=== PATIENT | male | born 1965 | race Caucasian/White ===

== ENCOUNTER 2020-10-29 12:53 | Inpatient (IN) | payer OTHER ==
[~2020-10-29] VITALS: Ht 182.9 cm; Wt 99.0 kg
[~2020-10-29 12:53] MED LIST: HYDACE5 PO; NAPR220 PO; NAPR550 PO; PENVK500 PO; RXNAPNA550 PO
[2020-10-29] MEDS ORDERED: LISI5 PO (13:42)
[2020-10-29 14:14] LABS: Hemoglobin 16.1 g/dL (13.5-17.5); Mean Corpuscular HGB 31.6 pg (26.0-34.0); Mean Corpuscular HGB Conc 33.5 g/dL (31.5-36.5); Mean Corpuscular Volume 94 fL (80-100); Mean Platelet Volume 9.8 fL (9.1-12.4); Platelet Count 214 K/mm3 (150-400); RDW Coefficient Variation 13.2 % (11.7-14.2); RDW Standard Deviation 45.5 fL (35.1-46.3); White Blood Cell Count 5.79 K/mm3 (4.00-11.30)
[2020-10-29 14:40] LABS: BAND PERCENT MAN 2 % (0-8); BASOPHILS PERCENT MAN 0 % (0-2); EOSINOPHILS PERCENT MAN 0 % (0-6); LYMPHOCYTES ABSOLUTE MAN 1.04 K/mm3 (0.84-5.20); LYMPHOCYTES PERCENT MAN 18 % (21-46); MONOCYTES ABSOLUTE MAN 0.05 K/mm3 (0.16-1.47); MONOCYTES PERCENT MAN 1 % (4-13); NEUTROPHILS ABSOLUTE MAN 4.68 K/mm3 (1.96-9.15); SEG NEUTROPHILS PERCENT MAN 79 % (41-73); TOTAL CELLS COUNTED 100
[2020-10-29 14:46] LABS: Alanine Aminotransfer (ALT/SGP 48 U/L (12-78); Albumin, Blood 3.4 g/dL (3.4-5.0); Albumin/Globulin Ratio 0.8 (0.8-1.8); Alk Phos 91 U/L (50-136); Anion Gap 7 mmol/L (6-16); Aspartate Aminotrans (AST/SGOT 72 U/L (12-37); Bilirubin, Total 0.5 mg/dL (0.1-1.0); Blood Urea Nitrogen 16 mg/dL (8-24); CO2, Blood 27 mmol/L (21-32); Calcium, Blood 8.5 mg/dL (8.5-10.1); Chloride, Blood 102 mmol/L (98-108); Creatinine, Blood 1.14 mg/dL (0.60-1.20); Globulin, Blood 4.2 g/dL (2.2-4.0); Glomerular Filtration Rate >60 (60-); Glucose, Blood 103 mg/dL (70-99); Potassium, Blood 3.6 mmol/L (3.5-5.5); Sodium, Blood 136 mmol/L (136-145); Total Protein, Blood 7.6 g/dL (6.4-8.2); Troponin I <0.015 ng/mL (0.000-0.040)
--- NOTE | 2020-10-29 17:53 | NUR ---
SHIFT SUMMARY PATIENT TRANSFERED FROM ER AT 1700. PATIENT SETTLED INTO ROOM. PATIENT IS ON 7L HIGH FLOW. PATIENT IS A SBA TO BATHROOM TOLERATED. PATIENT IS PLEASANT AND COOPERATIVE WITH CARE. PATIENT REPORTS HAVING AN APPETITE AND ORDERED A DINNER TRAY. PATIENT DENIES NAUSEA AND PAIN. PATIENT REPORTS BEING SOB AT REST.
--- NOTE | 2020-10-30 04:21 | NUR ---
BOARD CERTIFIED BEHAVIORAL ANALYST SUMMARY PT A/O X4, SLEPT WELL TONIGHT. FLAT AFFECT. SBA TO INDEPENDENT IN ROOM. CONTINUES TO BE ON 7L VIA HIGH FLOW SATTING IN THE LOW 90'S. DIM LUNG SOUNDS THROUGHOUT. TELE RUNNING SR AR 60 PER DOUGH MACHINE OPERATOR. CALL LIGHT WITHIN REACH, WILL CONTINUE TO MONITOR.
[2020-10-30 06:40] LABS: BASOPHILS ABSOLUTE AUTO 0.03 K/mm3 (0.00-0.23); BASOPHILS PERCENT AUTO 1 % (0-2); EOSINOPHILS PERCENT AUTO 0 % (0-6); Hematocrit 46.9 % (37.0-53.0); Hemoglobin 15.8 g/dL (13.5-17.5); IMMATURE GRAN ABSOLUTE AUTO 0.07 K/mm3 (0.00-0.10); IMMATURE GRAN PERCENT AUTO 2 % (0-1); LYMPHOCYTES ABSOLUTE AUTO 0.99 K/mm3 (0.84-5.20); LYMPHOCYTES PERCENT AUTO 25 % (21-46); MONOCYTES ABSOLUTE AUTO 0.29 K/mm3 (0.16-1.47); MONOCYTES PERCENT AUTO 7 % (4-13); Mean Corpuscular HGB 31.3 pg (26.0-34.0); Mean Corpuscular HGB Conc 33.7 g/dL (31.5-36.5); Mean Corpuscular Volume 93 fL (80-100); Mean Platelet Volume 10.2 fL (9.1-12.4); NEUTROPHILS ABSOLUTE AUTO 2.61 K/mm3 (1.96-9.15); NEUTROPHILS PERCENT AUTO 65 % (41-73); Platelet Count 241 K/mm3 (150-400); RDW Coefficient Variation 13.3 % (11.7-14.2); RDW Standard Deviation 45.7 fL (35.1-46.3); Red Blood Cell Count 5.05 M/mm3 (4.30-5.90); White Blood Cell Count 3.99 K/mm3 (4.00-11.30)
[2020-10-30 07:07] LABS: Alanine Aminotransfer (ALT/SGP 53 U/L (12-78); Albumin/Globulin Ratio 0.7 (0.8-1.8); Alk Phos 89 U/L (50-136); Anion Gap 7 mmol/L (6-16); Aspartate Aminotrans (AST/SGOT 72 U/L (12-37); Bilirubin, Total 0.5 mg/dL (0.1-1.0); Blood Urea Nitrogen 24 mg/dL (8-24); Bun/Creatinine Ratio 26.5 (12.0-20.0); CO2, Blood 26 mmol/L (21-32); Calcium, Blood 8.6 mg/dL (8.5-10.1); Chloride, Blood 105 mmol/L (98-108); Globulin, Blood 4.2 g/dL (2.2-4.0); Glomerular Filtration Rate >60 (60-); Glucose, Blood 130 mg/dL (70-99); Potassium, Blood 3.8 mmol/L (3.5-5.5); Sodium, Blood 138 mmol/L (136-145); Total Protein, Blood 7.2 g/dL (6.4-8.2)
[2020-10-30 23:53] LABS: Adenovirus F 40/41 Not Detected (NOT DETECT); Astrovirus Not Detected (NOT DETECT); Campylobacter Sp Not Detected (NOT DETECT); Cryptosporidium Not Detected (NOT DETECT); Cyclospora Cayetanensis Not Detected (NOT DETECT); E. Coli O157 Not Detected (NOT DETECT); Entamoeba Histolytica Not Detected (NOT DETECT); Enteroaggregative E. coli-EAEC Not Detected (NOT DETECT); Enteropathogenic E. coli-EPEC Not Detected (NOT DETECT); Enterotoxigenic E. coli-ETEC Not Detected (NOT DETECT); Giardia Lamblia Not Detected (NOT DETECT); Norovirus GI/GII Not Detected (NOT DETECT); Plesiomonas Shigelloides Not Detected (NOT DETECT); Rotavirus A Not Detected (NOT DETECT); Salmonella Sp Not Detected (NOT DETECT); Sapovirus Not Detected (NOT DETECT); Shiga Toxin-prod E. coli-STEC Not Detected (NOT DETECT); Shigella/Enteroin E. coli-EIEC Not Detected (NOT DETECT); Vibrio Cholerae Not Detected (NOT DETECT); Vibrio Sp Not Detected (NOT DETECT); Yersinia Enterocolitica Not Detected (NOT DETECT)
[2020-10-31 06:10] LABS: Base Excess Venous 1.5 mmol/L; Bicarbonate Venous 26.3 mmol/L (24.0-30.0); PCO2 Venous 32.3 mmHg (38-42); PO2 Venous 75.1 mmHg (38-42); pH Blood Venous 7.49 (7.34-7.37)
[2020-10-31 06:14] LABS: Hematocrit 45.5 % (37.0-53.0); Hemoglobin 15.2 g/dL (13.5-17.5); Mean Corpuscular HGB 30.9 pg (26.0-34.0); Mean Corpuscular HGB Conc 33.4 g/dL (31.5-36.5); Mean Corpuscular Volume 93 fL (80-100); Platelet Count 269 K/mm3 (150-400); RDW Coefficient Variation 13.1 % (11.7-14.2); RDW Standard Deviation 45.3 fL (35.1-46.3); Red Blood Cell Count 4.92 M/mm3 (4.30-5.90)
[2020-10-31 06:44] LABS: Alanine Aminotransfer (ALT/SGP 52 U/L (12-78); Albumin, Blood 2.8 g/dL (3.4-5.0); Albumin/Globulin Ratio 0.7 (0.8-1.8); Alk Phos 79 U/L (50-136); Anion Gap 7 mmol/L (6-16); Aspartate Aminotrans (AST/SGOT 54 U/L (12-37); Bilirubin, Total 0.4 mg/dL (0.1-1.0); Blood Urea Nitrogen 24 mg/dL (8-24); Bun/Creatinine Ratio 31.3 (12.0-20.0); CO2, Blood 25 mmol/L (21-32); Calcium, Blood 8.1 mg/dL (8.5-10.1); Chloride, Blood 109 mmol/L (98-108); Creatinine, Blood 0.77 mg/dL (0.60-1.20); Globulin, Blood 3.8 g/dL (2.2-4.0); Glomerular Filtration Rate >60 (60-); Glucose, Blood 116 mg/dL (70-99); Potassium, Blood 3.8 mmol/L (3.5-5.5); Sodium, Blood 141 mmol/L (136-145); Total Protein, Blood 6.6 g/dL (6.4-8.2)
[2020-10-31 09:09] LABS: BASOPHILS PERCENT MAN 0 % (0-2); EOSINOPHILS PERCENT MAN 0 % (0-6); LYMPHOCYTES ABSOLUTE MAN 0.73 K/mm3 (0.84-5.20); LYMPHOCYTES PERCENT MAN 12 % (21-46); MONOCYTES ABSOLUTE MAN 0.42 K/mm3 (0.16-1.47); MONOCYTES PERCENT MAN 7 % (4-13); NEUTROPHILS ABSOLUTE MAN 4.94 K/mm3 (1.96-9.15); SEG NEUTROPHILS PERCENT MAN 81 % (41-73); TOTAL CELLS COUNTED 100
--- NOTE | 2020-10-31 15:13 | NUR ---
SISTER TYSHAWN UPDATED VIA TELEPHONE. REQUESTS TO BE ADDED POINT OF CONTACT IN CHART, PT AGREEABLE. ADMITTING NOTIFIED. [phone]
--- NOTE | 2020-10-31 15:32 | NUR ---
NON-COMPLIANT WITH OXYGEN AT TIMES. THIS MORNING REQUIRING 15L NRB MASK. PATIENT STATES HE DOESN'T WANT TO WEAR IT, AT THAT TIME. SATURATIONS ~82% ON 11L OXYMIZER. PATIENT THEN EDUCATED AND AGREEABLE TO WEAR NRB MASK. SATURATIONS IMPROVED TO 89%. NO C/O DYSPNEA PATIENT FOUND TO HAVE NO O2 ON IN THE AFTERNOON. THIS RN EDUCATED PATIENT ON NECESSITY TO WEAR O2, AND DANGERS OF HYPOXIA. PT AGREEABLE TO WEAR O2 IN MOUTH OR NOSE AT ALL TIMES, AT THAT TIME. CONTINUES ON 13L OXYMIZER AT THIS TIME. SATS 90% AT ~1540.
--- NOTE | 2020-11-01 09:49 | NUR ---
SATURATIONS 75% ON ROOM AIR. BLUEISH TINGED LIPS. PATIENT HAS TAKEN O2 OFF. ALERT AND ORIENTED PATIENT, WAS ON 13L OXYMIZER. NOW ON BRB AT 15L, SATURATIONS 90%. EDUCATED.
--- NOTE | 2020-11-01 11:49 | NUR ---
SISTER DANIELLE [phone]. LIVES IN [place].
--- NOTE | 2020-11-02 03:44 | NUR ---
54 year old Male with covid 19 continues in special droplet contact isolation & he continues to be unable to maintain adequate oxygenation on nonrebreather or oximizer or both combined. He was changed to airvo high flow heated oxygen and sat currently 94% at rest. He has Pokelaboxx to alert staff to hypoxia & is alarms intermittanly. He does prone for hours which does not appear to improve hypoxia quickly.
--- NOTE | 2020-11-02 16:12 | NUR ---
PT IS A/OX3, PLEASANT AND COOPERATIVE. THE PT IS ON AIRVO PLUS NON REBREATHER OVER THAT. THE PT IS MAINTAING O2 SATS > 905 EXCEPT WITH ACTIVITY HE DESATS. PT TAKES THE NON REBREATHER OFF AT TIMES FOR A BREAK AND WILL DEST WHILE DOING THAT, PT WAS MEDICATED WITH TYLENOL FOR PAIN THIS AM, CALL LIGHT IN REACH. WILL CONTINUE TO MONITOR AND ASSESS FOR CHANGES
--- NOTE | 2020-11-03 18:48 | NUR ---
PT RESTING IN BED WITH NRB AND AIRVO MAXED WITH SATS 90 AND ABOVE. PT STARTED SHIFT LESS COMPLIANT, ANXIOS AND TAKING TRIPS TO AND FROM BATHROOM WITHOUT O2 AND NOT CALLING FOR HELP. PT MADE REMARKS LIKE "MY BRAIN DOES NOT NEED O2, IM ALREADY " AND "WHY DOES IT MATTER"? PT WAS EDUCATED AND COMFORTED WITH NO COMPLIANCE. PO ATIVAN AT 0.5 MG ONCE WAS ORDERED AND CALMED HIM FOR 2-3 HOURS. NO OTHER CHANGES NOTED. REMAINS ALERT AND ORIENTED X4.
--- NOTE | 2020-11-04 06:46 | NUR ---
SHIFT SUMMARY - PT HAS HAD NAUSEA TONIGHT - RELIEVED BY MEDICATION - SEE EMAR. PT HAS PULLED OFF HIS AIRVO, AND NRB X2 TONIGHT - SATS DROP TO MID 70'S BUT WITH RECOVERY ONCE NRB/AIRVO PLACED BACK ON - AIRVO 60L/NRB 15L. LS CLEAR, DIM BASES. OTHERWISE NO ACUTE CHANGES. CONTINUOUS BIOX ON. CALL LIGHT WITHIN REACH. BED IN LOW POSITION. FLUIDS AT BEDSIDE.
--- NOTE | 2020-11-04 18:25 | NUR ---
RT request pt be a priority as he has been taking off his oxygen regularly for long enough periods that he desats into the 60's. We discussed this at length, and he acknowledges his anxiety and believes it's related. Will bring him neck pillows for repositioning and some lavendar and peppermint to assist in soothing and relaxing. He states being here [facility] and having trouble breathing is just causing him extra irritability. Plan to see him again tomorrow to deliver pillows, etc.
[2020-11-05 05:56] LABS: BASOPHILS ABSOLUTE AUTO 0.05 K/mm3 (0.00-0.23); BASOPHILS PERCENT AUTO 1 % (0-2); EOSINOPHILS ABSOLUTE AUTO 0.03 K/mm3 (0.00-0.68); EOSINOPHILS PERCENT AUTO 0 % (0-6); Hematocrit 46.4 % (37.0-53.0); Hemoglobin 15.6 g/dL (13.5-17.5); IMMATURE GRAN ABSOLUTE AUTO 0.19 K/mm3 (0.00-0.10); IMMATURE GRAN PERCENT AUTO 3 % (0-1); LYMPHOCYTES ABSOLUTE AUTO 0.92 K/mm3 (0.84-5.20); LYMPHOCYTES PERCENT AUTO 14 % (21-46); MONOCYTES ABSOLUTE AUTO 0.32 K/mm3 (0.16-1.47); MONOCYTES PERCENT AUTO 5 % (4-13); Mean Corpuscular HGB 31.3 pg (26.0-34.0); Mean Corpuscular HGB Conc 33.6 g/dL (31.5-36.5); Mean Corpuscular Volume 93 fL (80-100); Mean Platelet Volume 10.5 fL (9.1-12.4); NEUTROPHILS ABSOLUTE AUTO 5.26 K/mm3 (1.96-9.15); NEUTROPHILS PERCENT AUTO 78 % (41-73); Platelet Count 355 K/mm3 (150-400); RDW Coefficient Variation 12.9 % (11.7-14.2); RDW Standard Deviation 43.8 fL (35.1-46.3); Red Blood Cell Count 4.98 M/mm3 (4.30-5.90); White Blood Cell Count 6.77 K/mm3 (4.00-11.30)
[2020-11-05 06:22] LABS: Anion Gap 7 mmol/L (6-16); Blood Urea Nitrogen 23 mg/dL (8-24); Bun/Creatinine Ratio 31.8 (12.0-20.0); CO2, Blood 24 mmol/L (21-32); Calcium, Blood 7.8 mg/dL (8.5-10.1); Chloride, Blood 109 mmol/L (98-108); Creatinine, Blood 0.72 mg/dL (0.60-1.20); Glomerular Filtration Rate >60 (60-); Glucose, Blood 155 mg/dL (70-99); Potassium, Blood 4.8 mmol/L (3.5-5.5); Sodium, Blood 140 mmol/L (136-145)
--- NOTE | 2020-11-05 07:34 | NUR ---
PT CONTINUES ON AIRVO AND NRB, SATS 90 AND ABOVE. NO OTHER CHANGES THIS SHIFT. PT SLEPT WELL AND WAS NOT ANXIOUS. STAFF WILL CONTUE TO MONITOR.
--- NOTE | 2020-11-05 17:09 | NUR ---
I took pt a neck pillow and a foam mattress topper from [facility]. He seems to be calmer today with these items. He has been using the neck pillow. He is no longer removing his oxygen as often or as long as he was previously. Encouraging pt to leave oxygen on frequently.
--- NOTE | 2020-11-05 17:10 | NUR ---
SHIFT SUMMARY 44 YR M ADMITTED WITH RESP FAIL R/T COVID. PT A&O, IND IN ROOM. PT STARTED THE DAY WIHT AIRVOW @15 AND NRB @12. ABLE TO TITRATE PT DOWN TO NRB @15 AND MAINTAIN SATS IN THE 90'S. PT REPORTS HIS SOB HAS IMPROVED SINCE YESTERDAY AND DOES SEEM TO TOLERATE ACTIVITY BETTER.
--- NOTE | 2020-11-06 04:29 | NUR ---
SHIFT SUMMARY A/OX4, IND TO BATHROOM. CURRENTLY ON 15L NRB WITH SATS MAINTAINING ABOVE 90. VSS, NO ACUTE CHANGES AT THIS TIME. BED IN LOWEST POSITION WITH CALL LIGHT IN REACH. WILL CONTINUE TO MONITOR AND REPORT TO ONCOMING RN.
--- NOTE | 2020-11-06 10:56 | NUR ---
FAMILY UPDATE- I SPOKE WITH SISTER DANIELLE AND SISTER ZO ON SPEAKER PHONE. INFORMED THEM PT WAS DOING WELL BUT STILL HAD HIGH O2 DEMANDS AND THE PLAN IS TO TITRATE O2 DOWN TO A MANAGABLE LEVEL FOR HOME USE OF <6L.
--- NOTE | 2020-11-06 15:32 | NUR ---
Therputic time with pt coaching him to move and keep deep breathing. pt very concerned about his future needs. We have discussed them before . Will request infor for him on benefits. ss consutl updated.
--- NOTE | 2020-11-06 17:55 | NUR ---
SHIFT SUMMARY PT REMAINED ON NRB@15L TODAY. DISCUSSED TITRATING 02 DOWN WITH RT HOWEVER PT DESATS INTO 80'S WITH ANY ACTIVITY. NO OTHER ACUTE CHANGES THIS SHIFT.
[2020-11-07 05:12] LABS: BASOPHILS ABSOLUTE AUTO 0.07 K/mm3 (0.00-0.23); BASOPHILS PERCENT AUTO 1 % (0-2); EOSINOPHILS ABSOLUTE AUTO 0.03 K/mm3 (0.00-0.68); EOSINOPHILS PERCENT AUTO 0 % (0-6); Hematocrit 46.8 % (37.0-53.0); Hemoglobin 15.9 g/dL (13.5-17.5); IMMATURE GRAN ABSOLUTE AUTO 0.22 K/mm3 (0.00-0.10); IMMATURE GRAN PERCENT AUTO 3 % (0-1); LYMPHOCYTES ABSOLUTE AUTO 1.17 K/mm3 (0.84-5.20); LYMPHOCYTES PERCENT AUTO 13 % (21-46); MONOCYTES ABSOLUTE AUTO 0.83 K/mm3 (0.16-1.47); MONOCYTES PERCENT AUTO 9 % (4-13); Mean Corpuscular HGB 31.6 pg (26.0-34.0); Mean Corpuscular Volume 93 fL (80-100); Mean Platelet Volume 10.4 fL (9.1-12.4); NEUTROPHILS ABSOLUTE AUTO 6.61 K/mm3 (1.96-9.15); NEUTROPHILS PERCENT AUTO 74 % (41-73); Platelet Count 368 K/mm3 (150-400); RDW Coefficient Variation 12.7 % (11.7-14.2); RDW Standard Deviation 43.1 fL (35.1-46.3); Red Blood Cell Count 5.03 M/mm3 (4.30-5.90); White Blood Cell Count 8.93 K/mm3 (4.00-11.30)
--- NOTE | 2020-11-07 05:14 | NUR ---
Pt denies pain, uneventful precision grinder. Pt calls appropriately and is on NRB @ 15L and sats are in the 90's. Plan: Titrate o2 as pt tolerates
[2020-11-07 05:45] LABS: Alanine Aminotransfer (ALT/SGP 87 U/L (12-78); Albumin, Blood 2.5 g/dL (3.4-5.0); Albumin/Globulin Ratio 0.7 (0.8-1.8); Alk Phos 67 U/L (50-136); Anion Gap 5 mmol/L (6-16); Aspartate Aminotrans (AST/SGOT 22 U/L (12-37); Bilirubin, Total 0.7 mg/dL (0.1-1.0); Blood Urea Nitrogen 23 mg/dL (8-24); Bun/Creatinine Ratio 30.1 (12.0-20.0); CO2, Blood 26 mmol/L (21-32); Calcium, Blood 8.4 mg/dL (8.5-10.1); Chloride, Blood 106 mmol/L (98-108); Creatinine, Blood 0.76 mg/dL (0.60-1.20); Globulin, Blood 3.8 g/dL (2.2-4.0); Glomerular Filtration Rate >60 (60-); Glucose, Blood 137 mg/dL (70-99); Potassium, Blood 4.5 mmol/L (3.5-5.5); Sodium, Blood 137 mmol/L (136-145); Total Protein, Blood 6.3 g/dL (6.4-8.2)
--- NOTE | 2020-11-07 16:37 | NUR ---
Shift Summary A/Ox4, switches between NRB @ 15 and Airvo as patient tolerates. Sats maintained between 85-92% depending on activity. Appetite is good. Calls appropriately for needs. Independent with urinal at bedside. Cont. biox on.
[2020-11-08 05:25] LABS: BASOPHILS ABSOLUTE AUTO 0.05 K/mm3 (0.00-0.23); BASOPHILS PERCENT AUTO 1 % (0-2); EOSINOPHILS ABSOLUTE AUTO 0.02 K/mm3 (0.00-0.68); EOSINOPHILS PERCENT AUTO 0 % (0-6); Hematocrit 46.3 % (37.0-53.0); Hemoglobin 15.9 g/dL (13.5-17.5); Mean Corpuscular HGB 31.7 pg (26.0-34.0); Mean Corpuscular HGB Conc 34.3 g/dL (31.5-36.5); Mean Corpuscular Volume 92 fL (80-100); Mean Platelet Volume 10.4 fL (9.1-12.4); Platelet Count 372 K/mm3 (150-400); RDW Coefficient Variation 12.6 % (11.7-14.2); RDW Standard Deviation 42.5 fL (35.1-46.3); Red Blood Cell Count 5.02 M/mm3 (4.30-5.90); White Blood Cell Count 8.79 K/mm3 (4.00-11.30)
[2020-11-08 05:28] LABS: IMMATURE GRAN ABSOLUTE AUTO 0.23 K/mm3 (0.00-0.10); IMMATURE GRAN PERCENT AUTO 3 % (0-1); LYMPHOCYTES ABSOLUTE AUTO 1.44 K/mm3 (0.84-5.20); LYMPHOCYTES PERCENT AUTO 16 % (21-46); MONOCYTES ABSOLUTE AUTO 0.72 K/mm3 (0.16-1.47); MONOCYTES PERCENT AUTO 8 % (4-13); NEUTROPHILS ABSOLUTE AUTO 6.33 K/mm3 (1.96-9.15); NEUTROPHILS PERCENT AUTO 72 % (41-73)
[2020-11-08 06:02] LABS: Alanine Aminotransfer (ALT/SGP 95 U/L (12-78); Albumin, Blood 2.6 g/dL (3.4-5.0); Albumin/Globulin Ratio 0.7 (0.8-1.8); Alk Phos 67 U/L (50-136); Anion Gap 4 mmol/L (6-16); Aspartate Aminotrans (AST/SGOT 24 U/L (12-37); Bilirubin, Total 0.7 mg/dL (0.1-1.0); Blood Urea Nitrogen 25 mg/dL (8-24); Bun/Creatinine Ratio 34.2 (12.0-20.0); CO2, Blood 26 mmol/L (21-32); Calcium, Blood 7.8 mg/dL (8.5-10.1); Chloride, Blood 107 mmol/L (98-108); Creatinine, Blood 0.73 mg/dL (0.60-1.20); Globulin, Blood 3.7 g/dL (2.2-4.0); Glomerular Filtration Rate >60 (60-); Glucose, Blood 142 mg/dL (70-99); Potassium, Blood 4.6 mmol/L (3.5-5.5); Sodium, Blood 137 mmol/L (136-145); Total Protein, Blood 6.3 g/dL (6.4-8.2)
--- NOTE | 2020-11-08 06:28 | NUR ---
Pt denies pain, SOB, or other discomforts. Pt on NRB 15L, tolerates well, but desats easily. Will continue to monitor
--- NOTE | 2020-11-08 18:13 | NUR ---
Shift Summary C/O wax build up in R ear, states had R ear cleaned out at Urgent Care a week prior to admit. Discussed with Dr. Becerra, received T.O. for ear wax drops BID, EMAR updated. Up in chair for meals. Remains on NRB @ 15L, sats stable at 90-95%. Patient requesting double servings for meals, Dr. Becerra is okay with this. No acute changes.
[2020-11-09 04:22] LABS: BASOPHILS ABSOLUTE AUTO 0.06 K/mm3 (0.00-0.23); BASOPHILS PERCENT AUTO 1 % (0-2); EOSINOPHILS ABSOLUTE AUTO 0.02 K/mm3 (0.00-0.68); EOSINOPHILS PERCENT AUTO 0 % (0-6); Hematocrit 45.3 % (37.0-53.0); Hemoglobin 15.6 g/dL (13.5-17.5); IMMATURE GRAN ABSOLUTE AUTO 0.36 K/mm3 (0.00-0.10); IMMATURE GRAN PERCENT AUTO 4 % (0-1); LYMPHOCYTES ABSOLUTE AUTO 1.58 K/mm3 (0.84-5.20); LYMPHOCYTES PERCENT AUTO 16 % (21-46); MONOCYTES ABSOLUTE AUTO 0.81 K/mm3 (0.16-1.47); MONOCYTES PERCENT AUTO 8 % (4-13); Mean Corpuscular HGB 31.8 pg (26.0-34.0); Mean Corpuscular HGB Conc 34.4 g/dL (31.5-36.5); Mean Corpuscular Volume 92 fL (80-100); Mean Platelet Volume 10.2 fL (9.1-12.4); NEUTROPHILS ABSOLUTE AUTO 7.07 K/mm3 (1.96-9.15); NEUTROPHILS PERCENT AUTO 71 % (41-73); Platelet Count 346 K/mm3 (150-400); RDW Coefficient Variation 12.5 % (11.7-14.2); RDW Standard Deviation 42.6 fL (35.1-46.3)
[2020-11-09 04:43] LABS: Alanine Aminotransfer (ALT/SGP 95 U/L (12-78); Albumin, Blood 2.5 g/dL (3.4-5.0); Albumin/Globulin Ratio 0.7 (0.8-1.8); Alk Phos 63 U/L (50-136); Anion Gap 4 mmol/L (6-16); Aspartate Aminotrans (AST/SGOT 21 U/L (12-37); Bilirubin, Total 0.5 mg/dL (0.1-1.0); Blood Urea Nitrogen 25 mg/dL (8-24); Bun/Creatinine Ratio 32.4 (12.0-20.0); CO2, Blood 25 mmol/L (21-32); Calcium, Blood 7.8 mg/dL (8.5-10.1); Chloride, Blood 107 mmol/L (98-108); Creatinine, Blood 0.77 mg/dL (0.60-1.20); Globulin, Blood 3.6 g/dL (2.2-4.0); Glomerular Filtration Rate >60 (60-); Glucose, Blood 171 mg/dL (70-99); Potassium, Blood 4.5 mmol/L (3.5-5.5); Sodium, Blood 136 mmol/L (136-145); Total Protein, Blood 6.1 g/dL (6.4-8.2)
--- NOTE | 2020-11-09 06:28 | NUR ---
Pt on NRB at 15L, sats in 90s. Pt denies pain, AAOx3
--- NOTE | 2020-11-09 14:45 | NUR ---
RECTAL BLEED PATIENT HAD LARGE BOWEL MOVEMENT IN BATHROOM. VISUALIZED SOME BLOOD IN TOILET AND NOTIFED THIS RN. APPEARS TO BE APPROX. 30 CC YONG RED BLOOD. PATIENT DENIES HEMORRHOIDS, STATES FELT A PAINFUL TEAR WITH BM. DR. EATON NOTIFIED, ORDER FOR CBC AND DC LOVENOX. MD WILL DISCUSS WITH ANOTHER HOSPITALIST RE CONSULTING GI.
[2020-11-09 15:13] LABS: BASOPHILS ABSOLUTE AUTO 0.07 K/mm3 (0.00-0.23); BASOPHILS PERCENT AUTO 1 % (0-2); EOSINOPHILS ABSOLUTE AUTO 0.01 K/mm3 (0.00-0.68); EOSINOPHILS PERCENT AUTO 0 % (0-6); Hematocrit 45.6 % (37.0-53.0); IMMATURE GRAN ABSOLUTE AUTO 0.47 K/mm3 (0.00-0.10); IMMATURE GRAN PERCENT AUTO 4 % (0-1); LYMPHOCYTES ABSOLUTE AUTO 1.59 K/mm3 (0.84-5.20); LYMPHOCYTES PERCENT AUTO 15 % (21-46); MONOCYTES ABSOLUTE AUTO 0.99 K/mm3 (0.16-1.47); MONOCYTES PERCENT AUTO 9 % (4-13); Mean Corpuscular HGB 31.9 pg (26.0-34.0); Mean Corpuscular HGB Conc 35.1 g/dL (31.5-36.5); Mean Corpuscular Volume 91 fL (80-100); Mean Platelet Volume 10.1 fL (9.1-12.4); NEUTROPHILS ABSOLUTE AUTO 7.64 K/mm3 (1.96-9.15); NEUTROPHILS PERCENT AUTO 71 % (41-73); Platelet Count 363 K/mm3 (150-400); RDW Coefficient Variation 12.7 % (11.7-14.2); RDW Standard Deviation 41.8 fL (35.1-46.3); Red Blood Cell Count 5.02 M/mm3 (4.30-5.90); White Blood Cell Count 10.77 K/mm3 (4.00-11.30)
--- NOTE | 2020-11-09 17:49 | NUR ---
Shift Summary Remains on NRB @ 10L, appetite remains good. Incentive spirometer given, education provided, patient demonstrated use effectively. Patient had deidre red blood with formed stools this shift. Dr. Barry was notifed, Dr. Galarza came to assess. CBC ordered in the AM. A/Ox4, pleasant.
[2020-11-10 05:26] LABS: Hemoglobin 15.7 g/dL (13.5-17.5); Mean Corpuscular HGB 31.5 pg (26.0-34.0); Mean Corpuscular HGB Conc 34.1 g/dL (31.5-36.5); Mean Corpuscular Volume 92 fL (80-100); Mean Platelet Volume 10.5 fL (9.1-12.4); Platelet Count 350 K/mm3 (150-400); RDW Coefficient Variation 12.8 % (11.7-14.2); Red Blood Cell Count 4.99 M/mm3 (4.30-5.90); White Blood Cell Count 12.08 K/mm3 (4.00-11.30)
--- NOTE | 2020-11-10 05:58 | NUR ---
SHIFT SUMMARY: AOX3, SUBBORN. CONTINUES TO REMOVE HIS NR, HAVE FOUND IT LAYING ON HIS CHEST SEVERAL TIMES TONIGHT WHILE HE IS SLEEPING ON HIS BACK. SATS DROP DOWN TO LOW 80'S. WANTS TO GO HOME BUT EDUCATED HIM THAT HIS OXYGEN DEMAND HAS TO DECREASE. ON NR AT 10LITERS, REFUSEDS TO WEAR HIGH FLOW OR NC STATES IT DRYS OUT HIS NOSE TO MUCH. DISCUSSED NEED TO ASSESS O2 DEMAND IF WE ARE TO DECREASE. LUNG SOUNDS CRACKLES IN THE BASES. VS WNL, AFEBRILE. CALL LIGHT IN REACH.
--- NOTE | 2020-11-10 18:13 | NUR ---
Pt given phone number for [employer] assistance by this RN. Pt is doing better overall; his breathing is improving and he is beginning to believe he'll be returning home. The new financial assistance number is [phone].
--- NOTE | 2020-11-10 18:30 | NUR ---
SHIFT SUMMARY PATIENT DENIES PAIN, NAUSEA, AND SHORTNESS OF BREATH. PATIENT MAINTAINING OXYGEN SATURATION AT 90% ON 7L/NRB. PER RT OK TO TITRATE DOWN TO 5L/NC ON NRB MASK. PATIENT REFUSES TO WEAR NASAL CANULA. URINAL INDEPENDENT AT BEDSIDE, SBA TO BR. EATING AND DRINKING WELL.
--- NOTE | 2020-11-11 05:05 | NUR ---
SHIFT SUMMARY: DECREASED TO HIGH FLOW NC ON 5-6LITERS TONIGHT. APPEARS TO BE TOLERATING UNLESS HE HAS EXERTION OR REMOVES THE MASK. SATS ARE HOLDING MID 90'S. DOES GET VERY SOB WHEN TALKING. ENCOURAGED INSPIROMETER USE. LUNG SOUNDS FINE CRACKLES. ABLE TO GET UP TO BSC AND URINAL. NO OTHER CHANGES TO NOTE THIS SHIFT. CALL LIGHT IN REACH.
[2020-11-11 14:07] LABS: Hematocrit 48.8 % (37.0-53.0); Hemoglobin 16.5 g/dL (13.5-17.5); Mean Corpuscular HGB 31.3 pg (26.0-34.0); Mean Corpuscular HGB Conc 33.8 g/dL (31.5-36.5); Mean Corpuscular Volume 93 fL (80-100); Mean Platelet Volume 10.5 fL (9.1-12.4); Platelet Count 380 K/mm3 (150-400); RDW Coefficient Variation 12.7 % (11.7-14.2); RDW Standard Deviation 43.5 fL (35.1-46.3); Red Blood Cell Count 5.27 M/mm3 (4.30-5.90); White Blood Cell Count 14.44 K/mm3 (4.00-11.30)
[2020-11-11 14:19] LABS: Alanine Aminotransfer (ALT/SGP 89 U/L (12-78); Albumin, Blood 2.8 g/dL (3.4-5.0); Albumin/Globulin Ratio 0.7 (0.8-1.8); Alk Phos 67 U/L (50-136); Anion Gap 7 mmol/L (6-16); Aspartate Aminotrans (AST/SGOT 13 U/L (12-37); Bilirubin, Total 0.4 mg/dL (0.1-1.0); Blood Urea Nitrogen 24 mg/dL (8-24); Bun/Creatinine Ratio 30.7 (12.0-20.0); CO2, Blood 26 mmol/L (21-32); Calcium, Blood 8.6 mg/dL (8.5-10.1); Chloride, Blood 102 mmol/L (98-108); Creatinine, Blood 0.78 mg/dL (0.60-1.20); Globulin, Blood 3.8 g/dL (2.2-4.0); Glomerular Filtration Rate >60 (60-); Glucose, Blood 169 mg/dL (70-99); Magnesium, Blood 2.1 mg/dL (1.6-2.4); Potassium, Blood 4.3 mmol/L (3.5-5.5); Sodium, Blood 135 mmol/L (136-145); Total Protein, Blood 6.6 g/dL (6.4-8.2)
[2020-11-11 14:42] LABS: BAND PERCENT MAN 3 % (0-8); BASOPHILS PERCENT MAN 0 % (0-2); EOSINOPHILS PERCENT MAN 0 % (0-6); LYMPHOCYTES ABSOLUTE MAN 1.87 K/mm3 (0.84-5.20); LYMPHOCYTES PERCENT MAN 13 % (21-46); METAMYELOCYTE ABSOLUTE MAN 0.57 K/mm3 (0.00-0.00); METAMYELOCYTE PERCENT MAN 4 % (0-0); MONOCYTES ABSOLUTE MAN 1.29 K/mm3 (0.16-1.47); MONOCYTES PERCENT MAN 9 % (4-13); MYELOCYTE ABSOLUTE MAN 0.14 K/mm3 (0.00-0.00); MYELOCYTE PERCENT MAN 1 % (0-0); NEUTROPHILS ABSOLUTE MAN 10.54 K/mm3 (1.96-9.15); SEG NEUTROPHILS PERCENT MAN 70 % (41-73); TOTAL CELLS COUNTED 100
--- NOTE | 2020-11-11 15:21 | NUR ---
HOME O2 EVAL PT ATTEMPTED TO DO A HOME O2 EVAL. PATIENT COULD NOT RECOVER AFTER SITTING AT EDGE OF BED. PATIENT OXYGEN INCREASED TO 15L TO HELP HIM RECOVER. PATIENT RECOVERED AFTER 15 MINUTES ON 15L HIGH FLOW.
--- NOTE | 2020-11-11 16:17 | NUR ---
SHIFT SUMMARY PATIENT DENIES PAIN AND NAUSEA. PATIENT GETS SOB WITH ACTIVITY. PATIENT DESATURATES TO THE LOW 80'S WITH ACTIVITY. PT ATTEMPTED HOME O2 EVAL. PATIENT SAT ON THE EDGE OF THE BED, BUT COULD NOT RECOVER WITHOUT BEING PUT ON 15L HIGH FLOW. PATIENT TOOK 15 MINUTES TO RECOVER TO 90%. PATIENT TITRATED BACK TO 5L HIGH FLOW AFTER RECOVERING FOR A COUPLE HOURS. EATING AND DRINKING WELL. PATIENT IS ANXIOUS TO GO HOME.
--- NOTE | 2020-11-12 04:12 | NUR ---
SHIFT SUMMARY: AOX3, DISCUSSED NEED TO BE MORE ACTIVE AND BUILD ENDURANCE UP AND O2 DEMAND DOWN. DISCUSSED TYPES OF EXERCISE IN THE ROOM HE CAN DO. DID HAVE HIM GET UP AND TAKE A SHOWER. LOWEST HE DROPPED ON THE 5 LITERS IS 82% WITH FULL ACTIVITY. ONCE DRESSED AND BACK IN BED, DID INCREASE TO 7 LITERS FOR A RECOVERY OF 10 MINUTE TIME. DISCUSSED INSPIROMETER USE. THIS ACTVITITY WIPED HIM OUT THE REST OF THE NIGHT, WHICH HELPED HIM SLEEP BUT HE HAD VERY LITTLE ENERGY AFTERWARDS. WILL CONITNUE TO MONITOR. CALL LIGHT IS IN REACH.
[2020-11-12 05:27] LABS: BASOPHILS ABSOLUTE AUTO 0.13 K/mm3 (0.00-0.23); BASOPHILS PERCENT AUTO 1 % (0-2); EOSINOPHILS PERCENT AUTO 0 % (0-6); Hematocrit 46.4 % (37.0-53.0); IMMATURE GRAN PERCENT AUTO 7 % (0-1); LYMPHOCYTES ABSOLUTE AUTO 2.19 K/mm3 (0.84-5.20); LYMPHOCYTES PERCENT AUTO 15 % (21-46); MONOCYTES ABSOLUTE AUTO 1.03 K/mm3 (0.16-1.47); MONOCYTES PERCENT AUTO 7 % (4-13); Mean Corpuscular HGB 31.9 pg (26.0-34.0); Mean Corpuscular HGB Conc 34.5 g/dL (31.5-36.5); Mean Corpuscular Volume 92 fL (80-100); Mean Platelet Volume 10.2 fL (9.1-12.4); NEUTROPHILS PERCENT AUTO 70 % (41-73); Platelet Count 344 K/mm3 (150-400); RDW Coefficient Variation 12.8 % (11.7-14.2); RDW Standard Deviation 43.2 fL (35.1-46.3); Red Blood Cell Count 5.02 M/mm3 (4.30-5.90); White Blood Cell Count 14.35 K/mm3 (4.00-11.30)
[2020-11-12 06:04] LABS: Alanine Aminotransfer (ALT/SGP 108 U/L (12-78); Albumin, Blood 2.6 g/dL (3.4-5.0); Albumin/Globulin Ratio 0.7 (0.8-1.8); Alk Phos 60 U/L (50-136); Anion Gap 7 mmol/L (6-16); Aspartate Aminotrans (AST/SGOT 23 U/L (12-37); BASOPHILS PERCENT MAN 0 % (0-2); Bilirubin, Total 0.5 mg/dL (0.1-1.0); Blood Urea Nitrogen 25 mg/dL (8-24); Bun/Creatinine Ratio 33.5 (12.0-20.0); CO2, Blood 24 mmol/L (21-32); Calcium, Blood 8.5 mg/dL (8.5-10.1); Chloride, Blood 104 mmol/L (98-108); Creatinine, Blood 0.75 mg/dL (0.60-1.20); EOSINOPHILS PERCENT MAN 0 % (0-6); Globulin, Blood 3.5 g/dL (2.2-4.0); Glomerular Filtration Rate >60 (60-); Glucose, Blood 160 mg/dL (70-99); LYMPHOCYTES ABSOLUTE MAN 1.86 K/mm3 (0.84-5.20); LYMPHOCYTES PERCENT MAN 13 % (21-46); METAMYELOCYTE ABSOLUTE MAN 0.43 K/mm3 (0.00-0.00); METAMYELOCYTE PERCENT MAN 3 % (0-0); MONOCYTES ABSOLUTE MAN 0.28 K/mm3 (0.16-1.47); MONOCYTES PERCENT MAN 2 % (4-13); MYELOCYTE ABSOLUTE MAN 0.14 K/mm3 (0.00-0.00); MYELOCYTE PERCENT MAN 1 % (0-0); NEUTROPHILS ABSOLUTE MAN 11.62 K/mm3 (1.96-9.15); Potassium, Blood 4.4 mmol/L (3.5-5.5); SEG NEUTROPHILS PERCENT MAN 81 % (41-73); Sodium, Blood 135 mmol/L (136-145); TOTAL CELLS COUNTED 100; Total Protein, Blood 6.1 g/dL (6.4-8.2)
--- NOTE | 2020-11-12 10:41 | NUR ---
NURSE HOME O2 EVAL ATTEMPTED HOME O2 EVAL AGAIN. PATIENT AT REST ON 5L IS 93% PATIENT WITH ACTIVITY AT 6L IS 81%. TOOK PATIENT 8 MINUTES ON 10L TO RECOVER TO 92%. PATIENT ON 10L WITH ACTIVITY 80%. TOOK PATIENT 10 MINUTES ON 10L TO RECOVER TO 92%. PATIENT WAS VISIBLY SHORT OF BREATH WITH ACTIVITY. DID NOT CONTINUE EVAL.
--- NOTE | 2020-11-12 16:22 | NUR ---
SHIFT SUMMARY PATIENT DENIES PAIN AND NAUSEA. PATIENT GETS VERY SHORT OF BREATH WITH ACTIVITY. ATTEMPTED HOME O2 EVAL AGAIN TODAY. PATIENT DESATURATED TO 80% ON 10L WITH ACTIVITY. PATIENT TOOK 10 MINUTES TO RECOVER TO 92%. PATIENT WAS VISIBLY SHORT OF BREATH WITH ACTIVITY. DID NOT CONTINUE HOME O2 EVAL. AFTER A FEW HOURS, PATIENT TITRATED BACK TO 5L AND MAINTAINED SATS IN THE LOW 90S. PATIENT EATING AND DRINKING WELL. PATIENT VERY ANXIOUS TO GO HOME.
--- NOTE | 2020-11-13 04:21 | NUR ---
NO ACUTE CHANGES OR SIGNIFICANT EVENTS OVERNIGHT. DID HAVE SOME INDIGESTION ISSUES AFTER EATING PIZZA. CURRENTLY WEARING NASAL CANNULA ON 5LITERS WITH OXYGEN LEVELS GREATER THAN 90% .
--- NOTE | 2020-11-13 17:35 | NUR ---
SHIFT SUMMARY PT ON 5L/M BY HIGH FLOW. DOES DROP WITH ACTIVITY. DROPPED TO 84% AT ONE POINT TODAY WHILE USING URINAL. HAVE CHANGED FINGER STICKER AND SATS HAVE REMAINED BETWEEN 90-93% ON 5L/M. DID DROP WHEN P.T. DID A HOME O2 EVAL AND WAS SLOW TO RECOVER. SOB AT REST THAT WORSENS WITH ACTIVITY.
--- NOTE | 2020-11-14 04:46 | NUR ---
ALERT AND ORIENTED X3. VERY SOB WHEN SITTING UP ON SIDE OF BED. OXYGEN DESATS TO 88% WHEN OVER EXERTING SELF. CURRENTLY ON 5LITERS VIA NASAL CANNULA AND OXYGENN HAS BEEN 90-93% MOST OF THE NIGHT. DENIES PAIN. DENIES NAUSE. NO ACUTE CHANGES IN CONDITION NOTED OVERNIGHT. NO SIGNIFICAN EVENTS HAPPENEND OVERNIGHT.
[2020-11-14 05:12] LABS: Hematocrit 47.8 % (37.0-53.0); Hemoglobin 16.4 g/dL (13.5-17.5); Mean Corpuscular HGB 31.7 pg (26.0-34.0); Mean Corpuscular HGB Conc 34.3 g/dL (31.5-36.5); Mean Corpuscular Volume 92 fL (80-100); Mean Platelet Volume 10.2 fL (9.1-12.4); Platelet Count 299 K/mm3 (150-400); RDW Coefficient Variation 13.2 % (11.7-14.2); RDW Standard Deviation 44.2 fL (35.1-46.3); Red Blood Cell Count 5.18 M/mm3 (4.30-5.90)
[2020-11-14 05:46] LABS: Alanine Aminotransfer (ALT/SGP 201 U/L (12-78); Albumin, Blood 2.6 g/dL (3.4-5.0); Albumin/Globulin Ratio 0.7 (0.8-1.8); Alk Phos 59 U/L (50-136); Anion Gap 8 mmol/L (6-16); Aspartate Aminotrans (AST/SGOT 30 U/L (12-37); Bilirubin, Total 0.5 mg/dL (0.1-1.0); Blood Urea Nitrogen 27 mg/dL (8-24); Bun/Creatinine Ratio 33.8 (12.0-20.0); CO2, Blood 21 mmol/L (21-32); Calcium, Blood 8.4 mg/dL (8.5-10.1); Chloride, Blood 105 mmol/L (98-108); Globulin, Blood 3.5 g/dL (2.2-4.0); Glomerular Filtration Rate >60 (60-); Glucose, Blood 138 mg/dL (70-99); Potassium, Blood 4.5 mmol/L (3.5-5.5); Sodium, Blood 134 mmol/L (136-145); Total Protein, Blood 6.1 g/dL (6.4-8.2)
[2020-11-14 08:58] LABS: BASOPHILS PERCENT MAN 0 % (0-2); EOSINOPHILS PERCENT MAN 0 % (0-6); TOTAL CELLS COUNTED 100
[2020-11-14 09:00] LABS: LYMPHOCYTES PERCENT MAN 9 % (21-46); MONOCYTES ABSOLUTE MAN 1.28 K/mm3 (0.16-1.47); MONOCYTES PERCENT MAN 7 % (4-13); MYELOCYTE PERCENT MAN 6 % (0-0); SEG NEUTROPHILS PERCENT MAN 78 % (41-73)
[2020-11-14 09:06] LABS: LYMPHOCYTES ABSOLUTE MAN 1.65 K/mm3 (0.84-5.20); NEUTROPHILS ABSOLUTE MAN 14.35 K/mm3 (1.96-9.15)
--- NOTE | 2020-11-14 14:17 | NUR ---
Spiritual Care Visit conducted. I noticed during rounding that the patient was quite anxious to continue staying in the hospital as he felt locked down and isolated. I made it a point to spend some time with him this afternoon, just conversing and breaking up the monotony of his day. He was very appreciative.
--- NOTE | 2020-11-14 17:51 | NUR ---
pt pleasant today. no c/o pain. down to 6 l n/c at this time. does home o2 eval daily to see progress. no new concerns noted. bed in low position, call lite in reach, calls approp
--- NOTE | 2020-11-15 05:08 | NUR ---
SHIFT SUMMARY PATIENT IS ALERT AND ORIENTED X4. VS STABLE FOR PATIENT ON 5L. INCREASED O2 TO 6L WHILE SLEEPING. NO COMPLAINTS OF CHEST PAIN. SLIGHT CRACKLES NOTED TO BLL. ENCOURAGED PATIENT TO USE I.S. THROUGHOUT DAY. ALL CARES COMPLETED AND MEDICATIONS GIVEN ORDERED ACCORDING TO NURSING JUDGEMENT. ALL UNFINISHED CARES ENDORSED TO ONCOMING RN.
[2020-11-15 05:40] LABS: Hematocrit 47.5 % (37.0-53.0); Mean Corpuscular HGB 31.4 pg (26.0-34.0); Mean Corpuscular HGB Conc 33.7 g/dL (31.5-36.5); Mean Corpuscular Volume 93 fL (80-100); Platelet Count 257 K/mm3 (150-400); RDW Coefficient Variation 13.2 % (11.7-14.2); RDW Standard Deviation 45.1 fL (35.1-46.3); White Blood Cell Count 15.54 K/mm3 (4.00-11.30)
[2020-11-15 06:01] LABS: Alanine Aminotransfer (ALT/SGP 163 U/L (12-78); Albumin, Blood 2.5 g/dL (3.4-5.0); Albumin/Globulin Ratio 0.7 (0.8-1.8); Alk Phos 61 U/L (50-136); Anion Gap 12 mmol/L (6-16); Aspartate Aminotrans (AST/SGOT 28 U/L (12-37); Bilirubin, Total 0.4 mg/dL (0.1-1.0); Blood Urea Nitrogen 31 mg/dL (8-24); CO2, Blood 20 mmol/L (21-32); Calcium, Blood 8.2 mg/dL (8.5-10.1); Chloride, Blood 105 mmol/L (98-108); Creatinine, Blood 0.78 mg/dL (0.60-1.20); Globulin, Blood 3.4 g/dL (2.2-4.0); Glomerular Filtration Rate >60 (60-); Glucose, Blood 159 mg/dL (70-99); Potassium, Blood 4.4 mmol/L (3.5-5.5); Sodium, Blood 137 mmol/L (136-145); Total Protein, Blood 5.9 g/dL (6.4-8.2)
[2020-11-15 06:08] LABS: BAND PERCENT MAN 2 % (0-8); LYMPHOCYTES PERCENT MAN 12 % (21-46); NEUTROPHILS ABSOLUTE MAN 11.96 K/mm3 (1.96-9.15); SEG NEUTROPHILS PERCENT MAN 75 % (41-73); TOTAL CELLS COUNTED 100
[2020-11-15 06:09] LABS: BASOPHILS PERCENT MAN 0 % (0-2); EOSINOPHILS PERCENT MAN 0 % (0-6); LYMPHOCYTES ABSOLUTE MAN 1.86 K/mm3 (0.84-5.20); METAMYELOCYTE ABSOLUTE MAN 0.31 K/mm3 (0.00-0.00); METAMYELOCYTE PERCENT MAN 2 % (0-0); MONOCYTES ABSOLUTE MAN 1.08 K/mm3 (0.16-1.47); MONOCYTES PERCENT MAN 7 % (4-13); MYELOCYTE ABSOLUTE MAN 0.31 K/mm3 (0.00-0.00); MYELOCYTE PERCENT MAN 2 % (0-0)
[2020-11-15] MEDS ORDERED: Acetaminophen650 M1 PO (11:58)
[2020-11-15] MEDS ORDERED: DEXA6 PO (12:00)
[2020-11-15] MEDS ORDERED: Q-Tussin100 MG/5 M PO (12:01)
[2020-11-15] MEDS ORDERED: DOXY100 PO (12:02)
[2020-11-15] MEDS ORDERED: FAMO20 PO (12:02)
[2020-11-15] MEDS ORDERED: OCEAN104 ML (12:04)
[2020-11-15] MEDS ORDERED: VISBIOME 112.51 EACH PO (12:06)
--- NOTE | 2020-11-15 13:05 | NUR ---
Discharge Summary AOx4, discharging to home with [facility] LUCAS. Reviewed d/c papers with patient. Meds faxed to [facility]. Copy of d/c papers given. Yannick delivered O2, patient instructed to wear oxygen per Home O2 eval. Personal belongings will be return upon discharge. Will be escorted by EQUIP MAINT ENG via w/c once patient arranges for transport.
== END 2020-11-15 14:00 | disposition home health service (06) | DRG 177 ==
LOC: ER 12:53 → ERHOLD 15:19 → MEDS 15:19
PROVIDERS: Emergency Medicine; Family Medicine; Internal Medicine; ADMIT Internal Medicine
PROC: XW033E5 Introduction of Remdesivir Anti-infective into Peripheral Vein, Percutaneous Approach, New Technology Group 5 (ICD-10-PCS; principal; 2020-10-29)
PROC: 3E0333Z Introduction of Anti-inflammatory into Peripheral Vein, Percutaneous Approach (ICD-10-PCS; 2020-10-29)
PROC: 8E0ZXY6 Isolation (ICD-10-PCS; 2020-10-29)
DX: U07.1 COVID-19 (principal); J96.01 Acute respiratory failure with hypoxia; J12.89 Other viral pneumonia; A08.39 Other viral enteritis; E87.3 Alkalosis; K92.1 Melena; R74.01 Elevation of levels of liver transaminase levels; I10 Essential (primary) hypertension; F17.210 Nicotine dependence, cigarettes, uncomplicated; F41.9 Anxiety disorder, unspecified; E66.9 Obesity, unspecified; R53.81 Other malaise; Z88.5 Allergy status to narcotic agent; Z98.890 Other specified postprocedural states; Z79.899 Other long term (current) drug therapy; Z68.27 Body mass index [BMI] 27.0-27.9, adult
CPT/HCPCS: 0097U; 36415; 71045; 80048; 80053; 82803; 82947; 83605; 83735; 83880; 84145; 84484; 85025; 85027; 85379; 87070; 87205; 93005; 93010; 94640; 94660; 94761; 94762; 96365; 96366; 96375; 97116; 97162; 97530; 99285-25; A9270; J0696; J1100; J1650; J2405; J7030

== ENCOUNTER 2021-03-01 15:10 | Emergency (ER) | payer OTHER ==
[~2021-03-01] VITALS: Ht 182.9 cm; Wt 99.8 kg
[~2021-03-01 15:10] MED LIST changes: +Acetaminophen650 M1 PO; +DEXA6 PO; +DOXY100 PO; +FAMO20 PO; +LISI5 PO; +OCEAN104 ML; +Q-Tussin100 MG/5 M PO; +VISBIOME 112.51 EACH PO
[2021-03-01 15:40] LABS: BASOPHILS ABSOLUTE AUTO 0.04 K/mm3 (0.00-0.23); BASOPHILS PERCENT AUTO 0 % (0-2); EOSINOPHILS ABSOLUTE AUTO 0.26 K/mm3 (0.00-0.68); EOSINOPHILS PERCENT AUTO 2 % (0-6); Hematocrit 42.7 % (37.0-53.0); Hemoglobin 14.3 g/dL (13.5-17.5); IMMATURE GRAN ABSOLUTE AUTO 0.05 K/mm3 (0.00-0.10); IMMATURE GRAN PERCENT AUTO 1 % (0-1); LYMPHOCYTES ABSOLUTE AUTO 3.51 K/mm3 (0.84-5.20); LYMPHOCYTES PERCENT AUTO 32 % (21-46); MONOCYTES ABSOLUTE AUTO 0.97 K/mm3 (0.16-1.47); MONOCYTES PERCENT AUTO 9 % (4-13); Mean Corpuscular HGB 31.9 pg (26.0-34.0); Mean Corpuscular HGB Conc 33.5 g/dL (31.5-36.5); Mean Corpuscular Volume 95 fL (80-100); Mean Platelet Volume 9.5 fL (9.1-12.4); NEUTROPHILS ABSOLUTE AUTO 6.24 K/mm3 (1.96-9.15); NEUTROPHILS PERCENT AUTO 56 % (41-73); Platelet Count 223 K/mm3 (150-400); RDW Coefficient Variation 12.3 % (11.7-14.2); RDW Standard Deviation 42.9 fL (35.1-46.3); Red Blood Cell Count 4.48 M/mm3 (4.30-5.90); White Blood Cell Count 11.07 K/mm3 (4.00-11.30)
[2021-03-01 16:13] LABS: Alanine Aminotransfer (ALT/SGP 31 U/L (12-78); Albumin, Blood 3.9 g/dL (3.4-5.0); Albumin/Globulin Ratio 1.1 (0.8-1.8); Alk Phos 92 U/L (50-136); Anion Gap 7 mmol/L (6-16); Aspartate Aminotrans (AST/SGOT 28 U/L (12-37); Bilirubin, Total 0.3 mg/dL (0.1-1.0); Blood Urea Nitrogen 14 mg/dL (8-24); Bun/Creatinine Ratio 16.6 (12.0-20.0); CO2, Blood 26 mmol/L (21-32); Calcium, Blood 9.1 mg/dL (8.5-10.1); Chloride, Blood 104 mmol/L (98-108); Creatinine, Blood 0.84 mg/dL (0.60-1.20); Globulin, Blood 3.4 g/dL (2.2-4.0); Glomerular Filtration Rate >60 (60-); Glucose, Blood 90 mg/dL (70-99); Sodium, Blood 137 mmol/L (136-145); Total Protein, Blood 7.3 g/dL (6.4-8.2)
[2021-03-01] MEDS ORDERED: ATOR40TA PO (19:17)
[2021-03-01] MEDS ORDERED: METFORMIN HCL500 M3 PO (19:18)
[2021-03-01] MEDS ORDERED: LISI5 PO (19:18)
[2021-03-01] MEDS ORDERED: PRED20 PO (19:38)
== END 2021-03-01 20:13 | disposition home or self-care (01) ==
LOC: ER 15:10
PROVIDERS: Physician Assistant
DX: R06.02 Shortness of breath (principal); U09.9 Post COVID-19 condition, unspecified; Z88.5 Allergy status to narcotic agent; Z79.899 Other long term (current) drug therapy
CPT/HCPCS: 36415; 71046; 80053; 85025; 93005; 93010; 99284-25; A9270; J7512

== ENCOUNTER → 2023-03-26 | Outpatient (CLI) | payer OTHER ==
[~2023-03-26] MED LIST changes: +ATOR40TA PO; +METFORMIN HCL500 M3 PO; +PRED20 PO
[2023-03-26 14:48] LABS: BASOPHILS ABSOLUTE AUTO 0.08 K/mm3 (0.00-0.23); BASOPHILS PERCENT AUTO 1 % (0-2); EOSINOPHILS ABSOLUTE AUTO 0.33 K/mm3 (0.00-0.68); EOSINOPHILS PERCENT AUTO 3 % (0-6); Hematocrit 45.7 % (37.0-53.0); Hemoglobin 15.7 g/dL (13.5-17.5); IMMATURE GRAN ABSOLUTE AUTO 0.07 K/mm3 (0.00-0.10); IMMATURE GRAN PERCENT AUTO 1 % (0-1); LYMPHOCYTES ABSOLUTE AUTO 3.66 K/mm3 (0.84-5.20); LYMPHOCYTES PERCENT AUTO 35 % (21-46); MONOCYTES PERCENT AUTO 6 % (4-13); Mean Corpuscular HGB 32.4 pg (26.0-34.0); Mean Corpuscular HGB Conc 34.4 g/dL (31.5-36.5); Mean Corpuscular Volume 94 fL (80-100); Mean Platelet Volume 9.5 fL (9.1-12.4); NEUTROPHILS ABSOLUTE AUTO 5.79 K/mm3 (1.96-9.15); NEUTROPHILS PERCENT AUTO 55 % (41-73); Platelet Count 265 K/mm3 (150-400); RDW Coefficient Variation 13.3 % (11.7-14.2); RDW Standard Deviation 45.2 fL (35.1-46.3); Red Blood Cell Count 4.85 M/mm3 (4.30-5.90); White Blood Cell Count 10.53 K/mm3 (4.00-11.30)
[2023-03-26 14:59] LABS: Albumin/Globulin Ratio 1.1 (0.8-1.8); Bilirubin, Total 0.3 mg/dL (0.1-1.0); Bun/Creatinine Ratio 15.5 (12.0-20.0); Calcium, Blood 9.2 mg/dL (8.5-10.1); Creatinine, Blood 1.16 mg/dL (0.60-1.20); Globulin, Blood 3.6 g/dL (2.2-4.0); Potassium, Blood 3.5 mmol/L (3.5-5.5); Total Protein, Blood 7.6 g/dL (6.4-8.2)
[2023-03-26 15:22] LABS: Cholesterol 222 mg/dL (50-200); HDL Cholesterol 37 mg/dL (>39); LDL/HDL RATIO Unable to Calculate; Low Density Lipoprotein Chol Unable to Calculate mg/dL (<110); Triglycerides 511 mg/dL (30-160); Very Low Density Lipoprot Chol Unable to Calculate mg/dL (6-32)
== END | disposition home or self-care (01) ==
LOC: LAB SHORT 14:43 → LAB 14:43
PROVIDERS: Physician Assistant Medical
DX: I20.9 Angina pectoris, unspecified (principal); I10 Essential (primary) hypertension
CPT/HCPCS: 80053; 80061; 84484; 85025

== ENCOUNTER 2023-08-18 08:15 | Day surgery (SDC) | payer OTHER ==
[2023-08-18] VITALS (8 sets, daily range): BP systolic 129–150; BP diastolic 70–103
[~2023-08-18] VITALS: Ht 182.9 cm; Wt 104.8 kg
[~2023-08-18 08:15] MED LIST changes: +METO25 PO; +NITR.4SL SL
[2023-08-18] MEDS ORDERED: Aspir 8181 MG PO (08:41)
[2023-08-18 09:10] LABS: BASOPHILS ABSOLUTE AUTO 0.06 K/mm3 (0.00-0.23); BASOPHILS PERCENT AUTO 1 % (0-2); EOSINOPHILS ABSOLUTE AUTO 0.34 K/mm3 (0.00-0.68); EOSINOPHILS PERCENT AUTO 4 % (0-6); Hematocrit 42.4 % (37.0-53.0); Hemoglobin 14.2 g/dL (13.5-17.5); IMMATURE GRAN ABSOLUTE AUTO 0.04 K/mm3 (0.00-0.10); IMMATURE GRAN PERCENT AUTO 0 % (0-1); LYMPHOCYTES ABSOLUTE AUTO 3.52 K/mm3 (0.84-5.20); LYMPHOCYTES PERCENT AUTO 39 % (21-46); MONOCYTES ABSOLUTE AUTO 0.63 K/mm3 (0.16-1.47); MONOCYTES PERCENT AUTO 7 % (4-13); Mean Corpuscular HGB 32.3 pg (26.0-34.0); Mean Corpuscular HGB Conc 33.5 g/dL (31.5-36.5); Mean Corpuscular Volume 97 fL (80-100); Mean Platelet Volume 9.6 fL (9.1-12.4); NEUTROPHILS ABSOLUTE AUTO 4.56 K/mm3 (1.96-9.15); NEUTROPHILS PERCENT AUTO 50 % (41-73); Platelet Count 246 K/mm3 (150-400); RDW Coefficient Variation 13.2 % (11.7-14.2); Red Blood Cell Count 4.39 M/mm3 (4.30-5.90); White Blood Cell Count 9.15 K/mm3 (4.00-11.30)
[2023-08-18 09:25] LABS: International Normalized Ratio 0.97; Prothrombin Time Results 10.4 Sec (9.7-11.5)
[2023-08-18 09:34] LABS: Bun/Creatinine Ratio 23.7 (12.0-20.0); Calcium, Blood 9.1 mg/dL (8.5-10.1); Creatinine, Blood 0.97 mg/dL (0.60-1.20); Potassium, Blood 4.1 mmol/L (3.5-5.5)
[2023-08-18] MEDS ORDERED: NS 1,000 ML IV ONE ×4 (09:55→12:32)
[2023-08-18] MEDS ORDERED: NS 250 ML IV ONE (10:14)
[2023-08-18] MEDS ORDERED: Heparin Sodium 1000 Units/ML 10ML MDV ONE ×2 (10:14→12:21)
[2023-08-18] MEDS ORDERED: NiCARdipine HCL 1,000 MCG/5 ML SYR ONE (10:15)
[2023-08-18] MEDS ORDERED: Nitroglycerin 2 MG/20 ML BTL ONE (10:15)
[2023-08-18] MEDS ORDERED: FentaNYL Citrate 50 MCG/ML 2 ML Injection ONE ×2 (11:35→12:45)
[2023-08-18] MEDS ORDERED: Midazolam HCl 1MG / ML 2ML Vial ONE (11:35)
[2023-08-18] MEDS ORDERED: Clopidogrel Bisulfate 300 MG Cap ONE (12:21)
[2023-08-18] MEDS ORDERED: Aspirin 81 MG Chew ONE (12:22)
--- NOTE | 2023-08-18 13:23 | NUR ---
PATIENT RETURNED BACK TO RECOVERY ROOM SITTING UPRIGHT IN RECLINER. R RADIAL TR BAND FULLY INFLATED. SITE C/D/I SOFT/NONTENDER, NO EVIDENCE OF BLEEDING. VSS ON RA
[2023-08-18] MEDS ORDERED: CLOP75 PO (14:03)
--- NOTE | 2023-08-18 15:30 | NUR ---
INITIAL 3 CC OF AIR REMOVED FROM R RADIAL TR BAND. SITE C/D/I SOFT/NONTENDER, NO EVIDENCE OF BLEEDING. VSS ON RA
--- NOTE | 2023-08-18 15:37 | NUR ---
PATIENT AMBULATING TO RESTROOM WITHOUT DIFFICULTY
--- NOTE | 2023-08-18 15:45 | NUR ---
ALL AIR REMOVED FROM R RADIAL TR BAND. SITE C/D/I SOFT/NONTENDER, NO EVIDENCE OF BLEEDING. PATIENT DENYING ANY PAIN. VSS ON RA
--- NOTE | 2023-08-18 16:13 | NUR ---
PATIENT DISCHARGED HOME AT THIS TIME. R RADIAL SITE C/D/I SOFT/NONTENDER, NO EVIDENCE OF BLEEDING. TR BAND REMOVED, CLOTH DOT IN PLACE WITH ARM BOARD. PIV REMOVED WITHOUT DIFFICULTY, CATHETER INTACT. DISCHARGE INSTRUCTIONS REVIEWED WITH PATIENT. PATIENT INSTRUCTED ON NOT DRIVING TODAY. PATIENT WHEELED TO HOSPITAL ENTRANCE, BROTHER ABLE TO PROVIDE TRANSPORTATION HOME
== END 2023-08-18 16:13 | disposition home or self-care (01) ==
LOC: MHTC 08:15
PROVIDERS: Internal Medicine Cardiovascular Disease
DX: I25.118 Atherosclerotic heart disease of native coronary artery with other forms of angina pectoris (principal); I10 Essential (primary) hypertension; R06.02 Shortness of breath; E78.5 Hyperlipidemia, unspecified; Z79.82 Long term (current) use of aspirin; Z79.899 Other long term (current) drug therapy; Z88.5 Allergy status to narcotic agent
CPT/HCPCS: 76937; 80048; 85025; 85347; 85610; 92920; 93005; 93010; 93454; 99152; 99153; A9270; C1725; C1769; C1874; C1887; C1894; C9600; J1644; J2250; J3010; J7030; J7050; Q9967